=== PATIENT | male | born 1980 ===

== ENCOUNTER 2016-10-30 18:53 | Emergency (ER) | payer MEDICARE ==
[2016-10-30 19:30] VITALS: BP 130/85; PULSE 104; RESP 20; TEMP 98.5; O2SAT 97
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
== END 2016-10-30 23:27 | disposition home or self-care (01) ==
LOC: C.ER 18:53
DX: S05.12XD Contusion of eyeball and orbital tissues, left eye, subsequent encounter (principal); S05.11XD Contusion of eyeball and orbital tissues, right eye, subsequent encounter; Y09 Assault by unspecified means

== ENCOUNTER 2016-11-03 13:07 | Inpatient (IN) | payer MEDICARE ==
[2016-11-03 13:10] VITALS: BMI 17.2
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
[2016-11-03 14:26] LABS: BASO # 0.2 K/uL (0.0-0.2); BASO % 1.7 % (0.0-2.0); EOS # 0.1 K/uL (0.0-0.7); EOS % 0.7 % (0.0-4.0); LYMPH # 2.6 K/uL (1.0-4.3); LYMPH % 17.5 % (20.0-40.0); MEAN CELL VOLUME 90.6 fL (80.0-94.0); MEAN CORPUSCULAR HEMOGLOBIN 29.7 pg (27.0-31.0); MEAN CORPUSCULAR HGB CONC 32.8 g/dL (33.0-37.0); MEAN PLATELET VOLUME 9.3 fL (7.2-11.7); MONO # 1.1 K/uL (0.0-0.8); MONO % 7.4 % (0.0-10.0); RED CELL DISTRIBUTION WIDTH 13.8 % (11.5-14.5); WHITE BLOOD COUNT 14.6 K/uL (4.8-10.8)
[2016-11-03 14:31] LABS: CHLORIDE 95 mmol/L (98-107)
[2016-11-03 14:32] LABS: POTASSIUM 3.8 mmol/L (3.6-5.2); SODIUM 135 mmol/L (132-148)
[2016-11-03 14:34] LABS: GFR AFRICAN-AMERICAN > 60
[2016-11-03 14:35] LABS: ALB/GLOB RATIO 1.4 (1.0-2.1); ALKALINE PHOSPHATASE 73 U/L (38-126); ALT/SGPT 33 U/L (21-72); AST/SGOT 28 U/L (17-59); BILIRUBIN,TOTAL 0.3 mg/dL (0.2-1.3); BLOOD UREA NITROGEN 13 mg/dL (9-20); CALCIUM 8.8 mg/dl (8.6-10.4); CARBON DIOXIDE 25 mmol/L (22-30); GLUCOSE,RANDOM 126 mg/dL (75-110); TOTAL PROTEIN 7.3 g/dL (6.3-8.3)
[2016-11-03 14:36] LABS: ALCOHOL SERUM < 10 mg/dl (0-10)
[2016-11-03 16:17] LABS: RBC URINE 5 /hpf (0-3); URINE BILIRUBIN NEGATIVE (NEGATIVE); URINE BLOOD NEGATIVE (NEGATIVE); URINE COLOR Yellow (YELLOW); URINE GLUCOSE (UA) NORMAL (Normal); URINE KETONE TRACE mg/dL (NEGATIVE); URINE LEUKOCYTE ESTERASE NEG Leu/uL (Negative); URINE PROTEIN NEGATIVE (NEGATIVE); URINE UROBILINOGEN NORMAL mg/dL (0.2-1.0); WBC URINE 1 /hpf (0-5)
[2016-11-03] MEDS: Hydrocodone/Acetaminophen 5 mg /300 mg Tab PO SCH (18:40)
[2016-11-03 21:07] VITALS: O2SAT 98
[2016-11-04] MEDS: Hydrocodone/Acetaminophen 5 mg /300 mg Tab PO SCH ×4 (00:09→17:41)
[2016-11-04] MEDS: PrednisoLONE 1% Opht Susp(5 ml) OU PRN ×4 (05:15→22:32)
[2016-11-05] MEDS: Hydrocodone/Acetaminophen 5 mg /300 mg Tab PO SCH ×3 (00:02→17:17)
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
[2016-11-05] MEDS: PrednisoLONE 1% Opht Susp(5 ml) OU PRN ×3 (03:01→16:05)
[2016-11-05] MEDS ORDERED: Influenza Virus Vaccine 45 mcg/0.5 ml Syr IM ONE (10:00)
[2016-11-05] MEDS ORDERED: Pneumococcal 23-Valent Vaccine IM ONE (10:00)
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
[2016-11-05] MEDS: Bacitracin Ointment 30 GM TUBE TOP SCH (19:15)
[2016-11-06] MEDS: Hydrocodone/Acetaminophen 5 mg /300 mg Tab PO SCH ×2 (02:59→06:47)
[2016-11-06] MEDS: Bacitracin Ointment 30 GM TUBE TOP SCH ×3 (09:33→19:37)
--- NOTE | 2016-11-06 09:33 | PCM.PYCHPN ---
Psychiatric Progress Note - Psychiatric Progress Note Patient seen today, length of contact: 18 min Patient Chief Complaint: Hearing voices Problems Identified/Issues Discussed: Patient seen and evaluated, chart reviewed and discussed with the nurse. Patient remained disorganized and internally preoccupied. He still reports hearing voices and appears paranoid and delusional. At times became irritable and agitated and threatening to leave. however he denied any suicidal ideation or homicidal ideation. Supportive therapy and psychoeducation were given. Medication Change: Yes (Increase Haldol) Medical Record Reviewed: Yes Mental Status Examination - Cognitive Function Orientation: Person, Place, Time Memory: Intact Attention: Poor Concentration: Poor Association: Loose Fund of Knowledge: Poor - Mood Mood: Depressed, Anxious - Affect Affect: Blunted, Depressed - Speech Speech: Soft - Formal Thought Process Formal Thought Process: Hallucinations, Delusions, Paranoia, Loosening of associations - Suicidal Ideation Suicidal Ideation: No - Homicidal Ideation Homicidal Ideation: No Goal/Treatment Plan - Goal/Treatment Plan Need for Continued Stay: Discharge may exacerbated symptoms, Severe functional impairment Progress Toward Problem(s) and Goals/Treatment Plan: Schizophrenia paranoid type continuous CBT Psychoeducation Supportive therapy and group therapy [place] 300 mg PO BID Haldol 5 mg PO Daily Haldol 10 mg PO QHS Trazodone 50 mg PO QHS Seroquel 100 mg pO QHS Start Klonopin 1 gm po BID Face injury Start Bacitracin Cigarette cessation Nicotine patch - Smoking Cessation Smoking Cessation Initiated: Yes
[2016-11-06] MEDS: PrednisoLONE 1% Opht Susp(5 ml) OU PRN ×3 (09:34→19:36)
[2016-11-06] MEDS ORDERED: Magnesium Hydroxide Susp 30 ml UD PO ONE (20:15)
[2016-11-07] MEDS: Hydrocodone/Acetaminophen 5 mg /300 mg Tab PO SCH ×3 (00:04→20:02)
[2016-11-07] MEDS: Bacitracin Ointment 30 GM TUBE TOP SCH ×3 (09:58→19:15)
[2016-11-07] MEDS: PrednisoLONE 1% Opht Susp(5 ml) OU PRN ×2 (09:59→19:17)
--- NOTE | 2016-11-07 10:00 | PCM.PYCHPN ---
Psychiatric Progress Note - Psychiatric Progress Note Patient seen today, length of contact: 18 min Patient Chief Complaint: Hearing voices Problems Identified/Issues Discussed: Patient seen and evaluated, chart reviewed and discussed with the nurse. As Per the staff patient was calm down because of Klonopin. However he appeared to be disorganized, and paranoid. He still has his one eyes covered and requesting to see an gallery assistant. He still reports hearing voices and appears delusional. At times became irritable and agitated and threatening to leave. however he denied any suicidal ideation or homicidal ideation. Supportive therapy and psychoeducation were given. Medication Change: Yes (increase Haldol, [place]) Medical Record Reviewed: Yes Mental Status Examination - Cognitive Function Orientation: Person, Place, Time Memory: Intact Attention: Poor Concentration: Poor Association: Loose Fund of Knowledge: Poor - Mood Mood: Depressed, Anxious - Affect Affect: Blunted, Depressed - Speech Speech: Soft - Formal Thought Process Formal Thought Process: Hallucinations, Delusions, Paranoia, Loosening of associations - Suicidal Ideation Suicidal Ideation: No - Homicidal Ideation Homicidal Ideation: No Goal/Treatment Plan - Goal/Treatment Plan Need for Continued Stay: Discharge may exacerbated symptoms, Severe functional impairment Progress Toward Problem(s) and Goals/Treatment Plan: Schizophrenia paranoid type continuous CBT Psychoeducation Supportive therapy and group therapy [place] 300 mg PO BID Haldol 10 mg PO Daily Haldol 10 mg PO QHS Trazodone 50 mg PO QHS Seroquel 100 mg pO QHS Klonopin 1 gm po BID Face injury Start Bacitracin Cigarette cessation Nicotine patch - Smoking Cessation Smoking Cessation Initiated: Yes
[2016-11-08] MEDS: PrednisoLONE 1% Opht Susp(5 ml) OU PRN ×3 (02:53→17:35)
[2016-11-08] MEDS: Bacitracin Ointment 30 GM TUBE TOP SCH ×3 (11:17→17:31)
--- NOTE | 2016-11-08 13:32 | PCM.PYCHPN ---
Psychiatric Progress Note - Psychiatric Progress Note Patient seen today, length of contact: 16 min Patient Chief Complaint: My voices are getting better Problems Identified/Issues Discussed: Pt seen and evaluated, chart reviewed and discussed with the nurse. As per the staff, pt is becoming more organized and less internally preoccupied. Today pt appeared less delusional, paranoid and less psychotic. He started socializing and became calm and cooperative. His reported improvement in the agitation and racing of thoughts. He is taking medications and denies any side effects. Pt will be seen by Dr Floyd (Chlorine Plant Operator) today. Medication Change: Yes (increase lithium) Medical Record Reviewed: Yes Mental Status Examination - Cognitive Function Orientation: Person, Place, Situation, Time Memory: Intact Attention: WNL Concentration: Poor Association: Loose Fund of Knowledge: Poor - Mood Mood: Depressed, Anxious - Affect Affect: Broad - Speech Speech: Soft - Formal Thought Process Formal Thought Process: Hallucinations, Delusions, Loosening of associations - Suicidal Ideation Suicidal Ideation: No - Homicidal Ideation Homicidal Ideation: No Goal/Treatment Plan - Goal/Treatment Plan Need for Continued Stay: Discharge may exacerbated symptoms, Severe functional impairment Progress Toward Problem(s) and Goals/Treatment Plan: Schizophrenia paranoid type continuous CBT Psychoeducation Supportive therapy and group therapy [place] 600 mg PO BID Haldol 10 mg PO Daily Haldol 10 mg PO QHS Trazodone 50 mg PO QHS Seroquel 100 mg pO QHS Klonopin 1 gm po BID Face injury Bacitracin Eye Injury F/U with the eye doctor Cigarette cessation Nicotine patch - Smoking Cessation Smoking Cessation Initiated: Yes
[2016-11-09] MEDS: PrednisoLONE 1% Opht Susp(5 ml) OU PRN ×3 (12:12→21:03)
[2016-11-09] MEDS: Bacitracin Ointment 30 GM TUBE TOP SCH ×3 (12:13→20:51)
--- NOTE | 2016-11-09 13:14 | PCM.PYCHPN ---
Psychiatric Progress Note - Psychiatric Progress Note Patient seen today, length of contact: 16 min Patient Chief Complaint: I am feeling mellow Problems Identified/Issues Discussed: Pt seen and evaluated, chart reviewed and discussed wit the nurse. Today pt reports improvement in his mood and reports improvement in the anxiety and agitation. He appears more organized and reports that his mind is not racing badly. His voices are getting better but he still appears internally preoccupied. He is taking medications and denies any side effects. As per the staff Dr Floyd (Improvement Advisor) came yesterday to see him, pt he remained sleeping whole day. He will come later to see him again. Medication Change: Yes (decrease klonopin) Medical Record Reviewed: Yes Mental Status Examination - Cognitive Function Orientation: Person, Place, Situation, Time Memory: Intact Attention: WNL Concentration: Poor Association: Loose Fund of Knowledge: WNL - Mood Mood: Anxious - Affect Affect: Constricted - Speech Speech: Soft - Formal Thought Process Formal Thought Process: Hallucinations, Delusions, Loosening of associations, Flight of ideas - Suicidal Ideation Suicidal Ideation: No - Homicidal Ideation Homicidal Ideation: No Goal/Treatment Plan - Goal/Treatment Plan Need for Continued Stay: Discharge may exacerbated symptoms, Severe functional impairment Progress Toward Problem(s) and Goals/Treatment Plan: Schizophrenia paranoid type continuous CBT Psychoeducation Supportive therapy and group therapy [place] 600 mg PO BID Haldol 10 mg PO Daily Haldol 10 mg PO QHS Trazodone 50 mg PO QHS Seroquel 100 mg PO QHS Klonopin to 0.5 gm PO BID Face injury Bacitracin Eye Injury F/U with the eye doctor Cigarette cessation Nicotine patch - Smoking Cessation Smoking Cessation Initiated: Yes
[2016-11-10] MEDS: Bacitracin Ointment 30 GM TUBE TOP SCH ×3 (14:03→21:13)
--- NOTE | 2016-11-10 14:13 | PCM.PYCHPN ---
Psychiatric Progress Note - Psychiatric Progress Note Patient seen today, length of contact: 15 minutes Patient Chief Complaint: I'm feeling better Problems Identified/Issues Discussed: Patient seen. Chart reviewed. Case discussed with the staff. Issues related to illness and treatment were discussed with the patient. Patient reported compliant with treatment with no adverse affects. Tolerating treatment very well. Patient reported feeling much better. Patient had black eye Pad on his left eye. Patient reported no 1 came to see him for his eye but according to notes director of field sales came on November 08 to see the patient, but patient was sleeping all day. According to previous note director of field sales will come back to see the patient. At the time of evaluation, patient was awake alert oriented 3 , had no delusions, no auditory visual hallucinations, suicidal ideations or homicidal ideations. Medical Problems: None reported Diagnostic Results: Reviewed DSM 5 Symptoms Update: Feeling better Medication Change: No Medical Record Reviewed: Yes Mental Status Examination - Cognitive Function Orientation: Person, Place, Situation, Time Memory: Intact Attention: WNL Concentration: WNL Association: WNL Fund of Knowledge: WNL Decription of patient's judgement and insights: Fair - Mood Mood: Depressed (Much less than before) - Affect Affect: Flat - Speech Speech: Soft - Formal Thought Process Formal Thought Process: Loosening of associations - Suicidal Ideation Suicidal Ideation: No - Homicidal Ideation Homicidal Ideation: No Goal/Treatment Plan - Goal/Treatment Plan Need for Continued Stay: Remain at risks for inpatient hospitalization, Discharge may exacerbated symptoms, Severe functional impairment Progress Toward Problem(s) and Goals/Treatment Plan: Patient education Supportive therapy Continue treatment as before Patient will go to [facility] for follow-up care after discharge from the hospital. Estimated Date of D/C: 11/13/16 - Smoking Cessation Smoking Cessation Initiated: Yes
[2016-11-10] MEDS: Tobramycin 0.3% OPH OINT OS SCH (21:13)
[2016-11-11] MEDS: PrednisoLONE 1% Opht Susp(5 ml) OU PRN ×2 (01:48→20:35)
[2016-11-11] MEDS: Tobramycin 0.3% OPH OINT OS SCH ×2 (10:35→20:35)
[2016-11-11] MEDS: Bacitracin Ointment 30 GM TUBE TOP SCH ×3 (10:41→20:35)
--- NOTE | 2016-11-11 13:33 | PCM.PYCHPN ---
Psychiatric Progress Note - Psychiatric Progress Note Patient seen today, length of contact: 15 minutes Patient Chief Complaint: I'm feeling better. I don't have pain in my eye. Problems Identified/Issues Discussed: Patient seen. Chart reviewed. Case discussed with the staff. Issues related to illness and treatment were discussed with the patient. Patient reported compliant with treatment with no adverse affects. Tolerating treatment very well. Patient reported feeling much better. Patient had black eye Pad on his left eye. Patient reported yesterday he was seen by medical doctor. The instrument and control technician was contacted, will come to see him tomorrow on 11/13/2015. At the time of evaluation, patient was awake alert oriented 3, had no delusions, no auditory visual hallucinations, suicidal ideations or homicidal ideations. Medical Problems: None reported Diagnostic Results: Reviewed DSM 5 Symptoms Update: Improving with treatment Medication Change: No Medical Record Reviewed: Yes Mental Status Examination - Cognitive Function Orientation: Person, Place, Situation, Time Memory: Intact Attention: WNL Concentration: WNL Association: WNL Fund of Knowledge: [facility] Decription of patient's judgement and insights: Fair - Mood Mood: Depressed (Much less than before) - Affect Affect: Other (Appropriate) - Speech Speech: Soft - Formal Thought Process Formal Thought Process: No Impairment Psychotic Thoughts and Behaviors: None - Suicidal Ideation Suicidal Ideation: No - Homicidal Ideation Homicidal Ideation: No Goal/Treatment Plan - Goal/Treatment Plan Need for Continued Stay: Remain at risks for inpatient hospitalization, Discharge may exacerbated symptoms, Severe functional impairment Progress Toward Problem(s) and Goals/Treatment Plan: Patient education Supportive therapy Continue treatment as before Patient will go to [facility] for follow-up care after discharge from the hospital. Estimated Date of D/C: 11/13/16 - Smoking Cessation Smoking Cessation Initiated: Yes
[2016-11-12] MEDS: Tobramycin 0.3% OPH OINT OS SCH ×2 (10:57→18:16)
[2016-11-12] MEDS: Bacitracin Ointment 30 GM TUBE TOP SCH ×3 (10:58→18:39)
--- NOTE | 2016-11-12 13:26 | PCM.PYCHPN ---
Psychiatric Progress Note - Psychiatric Progress Note Patient seen today, length of contact: 15 minutes Patient Chief Complaint: My voices are getting better Problems Identified/Issues Discussed: Pt seen and evaluated, chart reviewed and discussed with the nurse. Patient reports improvement in his mood. He appears more organized and coherent. He has started taking care of himself and started taking care of his ADLs. He started socializing and became calm and cooperative. His reports improvement in the agitation and racing of thoughts. He is taking medications and denies any side effects. Medication Change: No Medical Record Reviewed: Yes Mental Status Examination - Cognitive Function Orientation: Person, Place, Situation, Time Memory: Intact Attention: WNL Concentration: WNL Association: WNL Fund of Knowledge: WNL - Mood Mood: Depressed (Much less than before) - Affect Affect: Other (Appropriate) - Speech Speech: Soft - Formal Thought Process Formal Thought Process: No Impairment - Suicidal Ideation Suicidal Ideation: No - Homicidal Ideation Homicidal Ideation: No Goal/Treatment Plan - Goal/Treatment Plan Need for Continued Stay: Discharge may exacerbated symptoms, Severe functional impairment Progress Toward Problem(s) and Goals/Treatment Plan: Schizophrenia paranoid type continuous CBT Psychoeducation Supportive therapy and group therapy [place] 600 mg PO BID Haldol 10 mg PO Daily Haldol 10 mg PO QHS Trazodone 50 mg PO QHS Seroquel 100 mg pO QHS Klonopin 1 gm po BID Face injury Bacitracin Eye Injury F/U with the eye doctor Cigarette cessation Nicotine patch Estimated Date of D/C: 11/13/16 - Smoking Cessation Smoking Cessation Initiated: No
[2016-11-12] MEDS: PrednisoLONE 1% Opht Susp(5 ml) OU PRN ×2 (14:06→18:39)
--- NOTE | 2016-11-12 22:16 | CARD ---
APPROVED REPORT EKG Measurement Heart [id number] <Conclusion> Sinus tachycardia Moderate voltage criteria for LVH, may be normal variant Early repolarization Borderline ECG
[2016-11-13] MEDS: Tobramycin 0.3% OPH OINT OS SCH (09:07)
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
[2016-11-13 10:39] VITALS: BP 101/69; PULSE 85; RESP 20; TEMP 98.4
== END 2016-11-13 11:15 | disposition home or self-care (01) | DRG 885 ==
LOC: C.ER 13:07 → C.9E 14:56 → C.5E 15:42
PROVIDERS: ADMIT Psychiatry & Neurology Psychiatry; ATTEND Psychiatry & Neurology Psychiatry
PROC: GZ56ZZZ Individual Psychotherapy, Supportive (ICD-10-PCS; principal; 2016-11-03)
PROC: GZHZZZZ Group Psychotherapy (ICD-10-PCS; 2016-11-03)
DX: F20.0 Paranoid schizophrenia (principal); S09.90XA Unspecified injury of head, initial encounter; Z68.1 Body mass index [BMI] 19.9 or less, adult; F31.9 Bipolar disorder, unspecified; H54.0 Blindness, both eyes; S00.10XA Contusion of unspecified eyelid and periocular area, initial encounter; F11.10 Opioid abuse, uncomplicated; F12.10 Cannabis abuse, uncomplicated; F17.210 Nicotine dependence, cigarettes, uncomplicated

== ENCOUNTER 2016-12-02 22:58 | Emergency (ER) | payer MEDICARE ==
[2016-12-02 22:59] VITALS: BMI 17.2
--- NOTE | 2016-12-02 23:56 | C.PDOC ---
History Of Present Illness 36 y/o male brought in by girlfriend for reported behavioral changes. Patient with past history of schizophrenia, and girlfriend reports patient stated he wants to kill everbody. Denies any other complaints at this time. Time Seen by Provider: 12/02/16 23:55 Chief Complaint (Nursing): Psychiatric Evaluation History Per: Patient History/Exam Limitations: no limitations Current Symptoms Are (Timing): Still Present Suicide/Self Injury Attempted (Context): None Modifying Factor(s): None Recent travel outside of the [place]: No Past Medical History Reviewed: Historical Data, Nursing Documentation, Vital Signs Vital Signs: Last Vital Signs Temp 98.0 F 12/03/16 05:20 Pulse 96 H 12/03/16 05:20 Resp 16 12/03/16 05:20 BP 111/78 12/03/16 05:20 Pulse Ox 98 12/03/16 06:12 - Medical History PMH: Anxiety, Bipolar Disorder, Cardia Arrhythmia, Depression, Schizophrenia - [facility] Procedures GROUP PSYCHOTHERAPY (11/03/16) INDIVIDUAL PSYCHOTHERAPY, SUPPORTIVE (11/03/16) Family History: States: Unknown Family Hx - Social History Hx Tobacco Use: Yes Hx Alcohol Use: Yes Hx Substance Use: Yes (weed) - Immunization History Hx Tetanus Toxoid Vaccination: Yes Hx Influenza Vaccination: No Hx Pneumococcal Vaccination: No Review Of Systems Except As Marked, All Systems Reviewed And Found Negative. Constitutional: Negative for: Fever Cardiovascular: Negative for: Chest Pain Respiratory: Negative for: Shortness of Breath Gastrointestinal: Negative for: Vomiting Skin: Negative for: Rash Psych: Positive for: Psychosis. Negative for: Suicidal ideation Physical Exam - Physical Exam Appears: Non-toxic, Other (bizarre affect, tall black male, dyed blonde hair) Skin: Normal Color, Warm, Dry Head: Atraumatic, Normacephalic Eye(s): bilateral: Normal Inspection Chest: Symmetrical Cardiovascular: Rhythm Regular, No Murmur Respiratory: Normal Breath Sounds, No Rales, No Rhonchi, No Wheezing Gastrointestinal/Abdominal: Soft, No Tenderness Back: Normal Inspection Extremity: Normal ROM, Capillary Refill (< 2 sec. ) Neurological/Psych: Oriented x3, Normal Speech, Normal Cognition ED Course And Treatment - Laboratory Results Result Diagrams: 12/03/16 00:26 12/03/16 00:26 Lab Interpretation: Abnormal (alcohol 56, tox neg.) ECG: Interpreted By Me ECG Rhythm: Sinus Rhythm ECG Interpretation: Normal Rate From EC O2 Sat by Pulse Oximetry: 98 (RA) Pulse Ox Interpretation: Normal - Radiology CXR: Interpreted by Me CXR Interpretation: Yes: No Acute Disease Reevaluation Time: 06:00 (d/w Crisis- [place] [facility] [place] Medical Decision Making Medical Decision Makin: Schizo; pending Screening [facility] [place] - Disposition Disposition Time: 07:00 Condition: GOOD - Clinical Impression Clinical Impression: Schizophrenia - Scribe Statement The provider has reviewed the documentation as recorded by the Scribe Sylvester Miranda All medical record entries made by the Scribe were at my direction and personally dictated by me. I have reviewed the chart and agree that the record accurately reflects my personal performance of the history, physical exam, medical decision making, and the department course for this patient. I have also personally directed, reviewed, and agree with the discharge instructions and disposition. Physician Patient Turnover Patient Signed Over To: Cassia Lui Handoff Comments: pending [facility] [place]
[2016-12-03 00:33] LABS: BASO # 0.2 K/uL (0.0-0.2); EOS # 0.3 K/uL (0.0-0.7); EOS % 1.8 % (0.0-4.0); HEMATOCRIT 49.3 % (35.0-51.0); LYMPH # 5.4 K/uL (1.0-4.3); LYMPH % 33.3 % (20.0-40.0); MEAN CELL VOLUME 92.1 fL (80.0-94.0); MEAN CORPUSCULAR HEMOGLOBIN 30.1 pg (27.0-31.0); MEAN CORPUSCULAR HGB CONC 32.7 g/dL (33.0-37.0); MEAN PLATELET VOLUME 9.5 fL (7.2-11.7); MONO # 1.3 K/uL (0.0-0.8); MONO % 7.9 % (0.0-10.0); NRBC % 0.1 % (0.0-2.0); RED CELL DISTRIBUTION WIDTH 14.1 % (11.5-14.5); WHITE BLOOD COUNT 16.2 K/uL (4.8-10.8)
[2016-12-03 00:36] LABS: RBC URINE 1 /hpf (0-3); URINE BACTERIA RARE (<OCC); URINE BILIRUBIN NEGATIVE (NEGATIVE); URINE BLOOD 1+ (NEGATIVE); URINE COLOR Straw (YELLOW); URINE GLUCOSE (UA) NORMAL (Normal); URINE KETONE NEGATIVE (NEGATIVE); URINE LEUKOCYTE ESTERASE NEG Leu/uL (Negative); URINE PROTEIN NEGATIVE (NEGATIVE); URINE UROBILINOGEN NORMAL mg/dL (0.2-1.0); WBC URINE 2 /hpf (0-5)
[2016-12-03 00:42] LABS: CHLORIDE 98 mmol/L (98-107)
[2016-12-03 00:43] LABS: POTASSIUM 3.3 mmol/L (3.6-5.2); SODIUM 142 mmol/L (132-148)
[2016-12-03 00:45] LABS: ALB/GLOB RATIO 1.5 (1.0-2.1); ALKALINE PHOSPHATASE 79 U/L (38-126); ALT/SGPT 15 U/L (21-72); AST/SGOT 22 U/L (17-59); BILIRUBIN,TOTAL 0.4 mg/dL (0.2-1.3); BLOOD UREA NITROGEN 9 mg/dL (9-20); CARBON DIOXIDE 20 mmol/L (22-30); GFR AFRICAN-AMERICAN > 60; GLUCOSE,RANDOM 112 mg/dL (75-110); TOTAL PROTEIN 8.5 g/dL (6.3-8.3)
[2016-12-03 00:46] LABS: ALCOHOL SERUM 56 mg/dl (0-10); CALCIUM 9.4 mg/dl (8.6-10.4)
[2016-12-03 05:53] VITALS: O2SAT 98
--- NOTE | 2016-12-03 08:12 | RAD ---
HISTORY: psych adm COMPARISON: No prior. FINDINGS: LUNGS: No active pulmonary disease. PLEURA: No significant pleural effusion identified, no pneumothorax apparent. CARDIOVASCULAR: Normal. OSSEOUS STRUCTURES: No significant abnormalities. VISUALIZED UPPER ABDOMEN: Normal. OTHER FINDINGS: None. IMPRESSION: No active disease.
[2016-12-03 11:06] VITALS: BP 122/86; PULSE 95; RESP 20; TEMP 98.2
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
--- NOTE | 2016-12-03 13:30 | CARD ---
APPROVED REPORT EKG Measurement Heart [id number] <Conclusion> Normal sinus rhythm Normal ECG
== END 2016-12-03 11:05 | disposition home or self-care (01) ==
LOC: C.ER 22:58
DX: F20.9 Schizophrenia, unspecified (principal)
CPT/HCPCS: 71010; 80053; 81001; 85025; 93005; 99285; G0480